=== PATIENT | female | born 2000 | race Two or more races ===

== ENCOUNTER 2025-06-23 08:55 | Outpatient (REF) | payer OTHER, SELFPAY ==
[2025-06-23 15:13] LABS: Chlamydia pneumoniae PCR Not Detected (Not Detect.); Coronavirus 229E PCR Not Detected (Not Detect.); Coronavirus HKU1 PCR Not Detected (Not Detect.); Coronavirus NL63 PCR Not Detected (Not Detect.); Coronavirus OC43 PCR Not Detected (Not Detect.); RSV PCR Not Detected (Not Detect.); Rhino/Enterovirus PCR Detected (Not Detect.)
[2025-06-23 15:26] LABS: Influenza A H1 PCR Not Detected (Not Detect.); Influenza A H1-2009 PCR Not Detected (Not Detect.); Influenza A H3 PCR Not Detected (Not Detect.); SARS-CoV-2 PCR Not Detected (Not Detect.)
--- OUTSIDE RECORDS SUMMARY | 2025-06-23 16:12 | XMS_ITS | Clinical Summary ---
Author Organization [facility] Address [address] [place] [address] Care Team Providers Care Suture Winder Hand Name Role Phone Hammad Vicente MD Primary Care Provider [phone] Allergies No known active allergies Medications sertraline (ZOLOFT) 25 mg tablet Take 1 tablet (25 mg total) by mouth 1 (one) time each day. 30 each 1 05/30/20 25 025 Active hydrocortisone 1 % topical cream Apply topically 1 (one) time each day if needed for rash. 30 g 1 05/30/20 25 026 Active norethindrone- ethinyl estradiol (JUNEL FE 09/23) 1 mg-20 mcg (21)/75 mg (7) per tablet Take 1 Tablet by mouth daily for 360 days. 05/10/20 24 025 Discontinu ed(Discont inued by another clinician) docusate sodium (COLACE) 100 mg capsule TAKE 1 CAPSULE BY MOUTH 2 TIMES DAILY NEEDED FOR CONSTIPATION FOR UP TO 30 DAYS. 01/22/20 24 025 Discontinu ed(Discont inued by another clinician) azithromycin (ZITHROMAX) 250 mg tablet TAKE 4 TABLETS BY MOUTH DAILY ALL AT ONE TIME WITH OR WITHOUT FOOD 11/07/19 24 025 Discontinu ed(Discont inued by another clinician) amoxicillin (AMOXIL) 875 mg tablet Take 1 tablet (875 mg total) by mouth 2 (two) times a day. for 7 days 01/02/20 24 025 Discontinu ed(Discont inued by another clinician) Active Problems Problem Noted Date Diagnosed Date contractions 02/09/2024 Overview (09/19/2024): Evaluated at 33w3d for ROM with negative work up (amnisure/wetprep/trich/gcct/urine) -She was found to have contraction, cervix :L/T/C x2 ---GBS resulted negative, please repeat at 38 weeks if patient is not delivered Maternal varicella, non-immune 02/06/2024 Anemia 01/22/2024 Overview (09/19/2024): Ferritin at 7. Iron ordered, will schedule with heme for infusion Has had iron infusinons this pregnacy x 4 Sickle cell trait ([facility] V24) 08/31/2023 Overview (09/19/2024): 08/31/23 pt reports she has sickle cell trait. Unknown status of FOB. Pt is having Horizon testing (can test FOB through [facility] if her test is positive) FOB [facility] Horizon negative Strep throat 10/12/2009 Encounters Date Type Department Care Team Description 05/30/2025 8:45 AM EDT [facility] [address] [place] [address] Hammad Vicente MD Severe episode of recurrent major depressive disorder, without psychotic features ([facility] V24, [facility] V28) (Primary Dx); Flexural eczema from Last 3 Months Immunizations Immunization Administration Dates Next Due DTaP (Infanrix) 6wks to less than 7yo ,02/06/2004,03/09/2003,11/21,2002 MAfN-HSG-MVP (Pentacel) 2mo to less than 5yo 11/06/2003,03/09/2003,2002 H1N1 All Forms 08/05/2024 HPV 9-valent (Gardisil) 9yo to less than 46yo 09/01/2016,07/23/2015 Hepatitis B Pediatric (Enger ix B; Recombivax HB) to less than 20 yo 03/09/2003,2002,2002 IPV Inactivated polio (Ipol) 6wks and older 10/19/2006,11/06/2003,2002,08/22 Influenza trivalent, 0.5mL, preservative free (Fluarix; FluLaval; Fluzone) ages 6mo and older (Afluria) 3 years and older 09/01/2016,07/23/2015,08/05/2011,08/03 Influenza, Unspecified 2023 Influenza, live, intranasal, trivalent (FluMist) 2yo to less than 50yo 07/17/2014 MMR, measles mumps and rubel la Live (Priorix; M-M-R II) 12mo and older 11/06/2003 MMRV, measles mumps rubella and varicella live (Proquad) 4yo to less than 7yo 10/19/2006 Meningococcal MCV4P 11/01/2019,07/17/2014 Butlr SARS-CoV-2 COVID-19, mRNA, LNP-S, preservative free 04/26/2021,04/03/2021 Pneumococcal Conjugate Vacci ne, 7 Valent 07/17/2003,03/09/2003,2002,08/22 Tdap Tetanus diptheria acell ular pertussis (Boostrix; Adacel) 7yo and older 01/03/2024,07/17/2014 Varicella live (Varivax) 12m o and older 07/17/2003 Surgical History Surgery Date Site/Laterality Comments OTHER SURGICAL HISTORY PROCEDURE: HISTORY OTHER; COMMENT: face abscess surgery, had tube placed to drain it x 1 week OTHER SURGICAL HISTORY PROCEDURE: EXTRACTION ERUPTED TOOTH/EXR; COMMENT: molar tooth Medical History Medical History Date Comments No pertinent past medical history DX:No pertinent past medical history Ovarian cyst 2017 DX:Ovarian cyst Sickle cell trait ([facility] V24) DX:Sickle cell trait ([facility]) Irregular menses 02/20/2023 DX:Irregular me nses Family History Medical History Relation Name Comments Allergies Father Asthma Father Other: sickle cell trait Father No Known Problems Half-Brother Other: sickle cell trait Half-Sister 1 No Known Problems Half-Sister 2 No Known Problems Maternal Grandfather Allergies Maternal Grandmother Allergies Mother Anemia Mother Allergies Other MATERNAL SIDE No Known Problems Paternal Grandfather No Known Problems Paternal Grandmother Other: sickle cell trait Sister Breast cancer Neg Hx Cervical cancer Neg Hx Colon cancer Neg Hx Ovarian cancer Neg Hx Pancreatic cancer Neg Hx Prostate cancer Neg Hx Uterine cancer Neg Hx Relation Name Status Comments Father Alive 03/15/83 Half-Brother Alive share mom Half-Sister 1 Alive dad side Half-Sister 2 Alive dad side Maternal Grandfather Alive Maternal Grandmother Alive Mother Alive 09/26/84 Other Paternal Grandfather Paternal Grandmother Alive Sister Alive 01/02/06 Geovanna Social History Tobacco Use Types Packs/Day Years Used Date Smoking Tobacco: Never Smokeless Tobacco: Never Tobacco Cessation:Counseling Given: Not Answered Alcohol Use Standard Drinks/Week Comments No 0 (1 standard drink = 0.6 oz pur e alcohol) Housing Instability Answer Date Recorde d Are you worried that in the next 2 months you may not have stable housing? No 10/22/2024 Food Access & Nutrition Answer Date Rec orded Do you have access to a vari ety of food including fruits and vegetables? Yes 10/22/2024 Health Literacy Answer Date Recorded How often do you need to hav e someone help you when you read instructions, pamphlets, or other written material from your doctor or pharmacy? Never 10/22/2024 Caregiver: How often do you need to have someone help you when you read instructions, pamphlets, or other written material from your doctor or pharmacy? Not on file 10/22/2024 Financial Risk Answer Date Recorded How hard is it for you to pa y for the very basics like food, housing, medical care, and air conditioning / heating? Not asked 10/22/2024 Transportation Answer Date Recorded Has the lack of transportati on kept you from meetings, work, or from getting things needed for daily living? No Has the lack of transportati on kept you from medical appointments or from getting medications? No 10/22/2024 Social Isolation Answer Date Recorded How often do you feel lonely or isolated from th ose around you? Never 10/22/2024 Food Risk Answer Date Recorded Within the past 12 months we worried whether our food would run out before we got money to buy more. Never true 10/22/2024 Within the past 12 months th e food we bought just didn't last and we didn't have money to get more. Never true 10/22/2024 Dependent Care Answer Date Recorded Do you need help finding or paying for care for your loved ones. For example, child adolescent care or elderly care for an older adult? No 10/22/2024 Education Answer Date Recorded Do you think completing more education or training, like finishing a GED, going to college, or learning a trade, would be helpful for you? N/A 10/22/2024 Employment and Income Answer Date Recor ded During the last four weeks, have you been actively looking for work? No 10/22/2024 Living Situation Answer Date Recorded What is your living situation? Unrecognized valu e 10/22/2024 Comments No Sex and Gender Information Value Date Recorded Sex Assigned at Not on file Legal Sex Female 2:27 AM EST Gender Identity Not on file Sexual Orientation Not on file Obstetrics History Para Term AB IAB SAB Ectopic Multiple Livin g Live Births 1 1 1 Date Outcome GA Total Labor Labor/2nd/3rd Weight Sex Type Anes PTL Stephy A1 A5 Name Clin 024 Term 41w 2d 3941 g (139 oz) F Vag-S pont Epidur al Maxwell CNM Delivery Location:[facility] Filed Vital Signs Vital Sign Reading Time Taken Comments Blood Pressure 111/78 05/30/2025 8:50 AM EDT Pulse 70 05/30/2025 8:50 AM EDT Temperature - - Respiratory Rate 16 10/23/2024 11:28 AM EST Oxygen Saturation - - Inhaled Oxygen Concentration - - Weight 51.9 kg (114 lb 8 oz) 05/30/2025 8:50 AM EDT Height 160 cm (5' 3 ) 05/30/2025 8:50 AM EDT Body Mass Index 20.28 05/30/2025 8:50 AM EDT Plan of Treatment Upcoming Encounters Date Type Department Care Team (Late st Contact Info) Description 07/15/2025 8:45 AM EST [facility] [address] [place] [phone] Hammad Vicente MD [address] [place] [address] 10/29/2025 11:30 AM EST Office Visit [facility] Medicine - [facility] [address] [facility] [place] [phone] Enrique Ridley PA [address] [facility] [place] [address] Health Maintenance Due Date Last Done Comments Pneumococcal Vaccine: Pediatrics (0 to 5 Years) and At-Risk Patients (6 to 49 Years) (1 of 2 - PPSV23, PCV20, or PCV21) 09/11/2003 07/17/2003, 03/09/2003, 2002, Additional history exists Meningococcal B Vaccine (1 of 2 - Standard) 2018 COVID-19 Vaccine (3 - season) 2025 04/26/2021, 04/03/2021 Influenza Vaccine (#1) 2025 , 2023, 06/07/2023, Additional history exists Social Influencers of Health Screening 10/22/2025 10/22/2024 Gonorrhea/Chlamydia Screening 10/28/2025 10/28/2024, 03/08/2024 Cervical Cancer Screening: Pap Smear 09/13/2026 09/13/2023, 09/13/2023, 09/13/2023 Cholesterol Screening (Lipid Panel) 08/31/2028 08/31/2023 DTaP,Tdap,and Td Vaccines (8 - Td or Tdap) 01/02/2034 01/03/2024, 07/17/2014, 10/19/2006, Additional history exists RSV Immunization Adult Patients (1 - 1-dose 75+ series) 2077 Hepatitis B Vaccines Completed 03/09/2003, 2002, 2002 HIB Vaccines Completed 11/06/2003, 12/2003, 03/09/2003, Additional history exists IPV Vaccines Completed 10/19/2006, 12/2003, 11/06/2003, Additional history exists MMR Vaccines Completed 10/19/2006, 11/06/2003 HPV Vaccines Completed 09/01/2016, 07/23/2015 Meningococcal ACWY Vaccine Completed 11/01/2019, HIV Screening Completed 08/31/2023 Hepatitis C Screening Completed 08/31/2023 Varicella Vaccines Completed 04/03/2024, 0 10/19/2006, 07/17/2003 Depression Screening Completed 05/30/2025 Hepatitis A Vaccines Aged Out No long er eligible based on patient's age to complete this topic RSV Immunization Patients Under 20 months Aged Out No longer eligible based on patient's age to complete this topic Procedures Procedure Name Priority Date/Time Associated Diagnosis Comments CHLAMYDIA TRACHOMATIS AND NEISSERIA GONORRHOEAE PCR Routine 10/28/2024 10:04 AM EST Venereal disease screening PAP SMEAR Routine 09/13/2023 HEPATITIS C SCREENING Routine 08/31/2023 HIV SCREENING Routine 08/31/2023 LIPID PANEL Routine 08/31/2023 from Last 3 Months or Most Recently Relevant to Health Maintenance Results * Chlamydia trachomatis and Neisseria gonorrhoeae molecular study (10/28/2024 10:04 AM EST) Neisseria gonorrhoeae PCR Negative Negative LAB MOLECULAR DIAGNOSTICS METHOD 10/29/2024 9:21 AM EST [facility] Chlamydia trachomatis PCR Negative Negative LAB MOLECULAR DIAGNOSTICS METHOD 10/29/2024 9:21 AM EST [facility] Swab Vaginal structure / Unknown Non-blood Collection / Unknown 10/28/2024 10:04 AM EST 10/28/2024 10:04 AM EST us Jamilah Mistry CNM LAB MICROBIOLOGY - GENERAL OR DERABLES Final Result [facility] [address] [place] [address], [place] [phone] * Pap smear (09/13/2023) 09/13/2023 Narrative HISTORICAL TESTING LAB RESULTING AGENCY - 09/21/2023 12:01 PM EST [id number] THINPREP PAP, IMAGED: NEGATIVE FOR SQUAMOUS INTRAEPITHELIAL LESION AND MALIGNANCY . TRICHOMONAS VAGINALIS IS PRESENT. ABUNDANT PARTIALLY OBSCURING ACUTE INFLAMMATORY CELLS ARE PRESENT. LEAH GARCIA(ASCP) (CASE ELECTRONICALLY SIGNED 09 21 2023) ADEQUACY: SATISFACTORY . SOURCE: THINPREP PAP HPV IF ASCUS, VAGINAL, IMAGED CLINICAL INFORMATION: HPV IF DIAGNOSIS OF ASCUS. , PAP HX NEGATIVE, LMP 06/18/23, [Z12.4] April Arreola CNM LAB CYTOLOGY ORDERABLES [place] Result HISTORICAL TESTING LAB RESULTING AGENCY * HIV Screening (08/31/2023) Pathologist [facility] HIV Screening abstracted Historical Provider HEALTH MAINTENANCE Final Result * Hepatitis C Screening (08/31/2023) Pathologist [facility] Hepatitis C Screening no interpretation , abstracted Historical Provider HEALTH MAINTENANCE Final Result * Lipid panel (08/31/2023) [facility] LDL/HDL Ratio 2 0 - 4 Triglycerides 55 0 - 150 mg/dL Cholesterol 109 0 - 200 mg/dL HDL 47 >=40 mg/dL LDL Cholesterol 51 0 - 100 mg/dL Blood Venous blood specimen / Unknown Historical Provider LAB BLOOD ORDERABLES [place] Result from Last 3 Months or Most Recently Relevant to Health Maintenance Insurance [facility] Care Teams Suture Winder Hand Relationship Specialty Start Date End Date Hammad Vicente MD [address] [place] [id number] PCP - General Internal Medicine 09/17/24
--- OUTSIDE RECORDS SUMMARY | 2025-06-23 16:12 | XMS_ITS | Data Portability ---
Author Organization [facility] [address] Address [address] [place] [address] Assessment No assessment recorded. Plan of Treatment Reminders Order Date Submit Date Provider Last Modified By Organization Details Last Modified Time Details Appointments None recorded. Lab None recorded. Referral None recorded. Procedures None recorded. Surgeries None recorded. Imaging None recorded. Medication Orders Tamiflu [address] [id number], [address] [place], [address], 11:14:35 ondansetron 4 mg disintegrat ing tablet [address] [id number], [address] [place], [address], 03:31:59 Patient TargetsNo targets recorded. Patient Instructions Encounter Date Encounter Id Patient Instructions Last Modified By Organization Details Last Modified Time 08/12/2022 [id number] influenza (flu): care instructions [email or web address] Not available 08/12/2022 11:15:21 rest, push fluids, continue tylenol and ibuprofen, dayquil, nyquil [email or web address] Not available 08/12/2022 11:15:06 Reason for Referral None Reported. Problems No Known Problems Medical Equipment None Reported. Allergies No known drug allergies Medications Name Sig Start Date Stop Date Status Note LastModified by Organization Details LastModified Time Tamiflu 75 mg capsule Take 1 capsule twice a day by oral route. 2021 active Not Available Not Available Not Avai lable ondansetron 4 mg disintegrati ng tablet Place 1 tablet 3 times a day by translingua l route. 2021 active Not Available Not Available Not Avai lable Vitals Date Recorded Body height Body mass index (BMI) [Percentile] Per age and sex Body mass index (BMI) Body weight Oxygen saturation Oxygen saturation in Arterial blood by Pulse oximetry Pain severity - 0-10 verbal numeric rating [Score] - Reported Heart rate Respiratory rate Body temperature Systolic And Diastolic Provider Name and Address Organization Details Last Updated DateTime 160.02 cm 45 % 21.3 kg/m2 25506.0 8 g 100 % 100 % 7 94 /min 18 /min 99.2 [degF] 116/84 mm[Hg] JABIER POWER PA - [facility] 11:00:52 Social History Question Answer Notes LastModified by [employer] Details LastModified Time Tobacco Smoking Status Never Smoker JABIER deshpande, PA - [facility] 08/12/2022 11:02:01 What Is The Highest Grade Or Level Of School You Have Completed Or The Highest Degree You Have Received? [id number] Information not available 08/12/2022 What Is Your Water Source? City Information not available 08/12/2022 What Is Your Heat Source? Electric Information not available 08/12/2022 Have You Had Direct Contact, Or Contact During Intimacy, With Monkeypox Rash, Scabs, Or Body Fluids From A Person With Monkeypox? No [email or web address] Information not available 08/12/2022 What Is Your Relationship Status? Unknown [email or web address] Information not available 08/12/2022 Have You Recently Traveled Abroad? No Information no t available 08/12/2022 Are You Currently In School? Yes Information not available 08/12/2022 Sex: Unknown Functional Status Question Answer Note LastModified by [employer] Details LastModified Time Do you use any illicit or recreational drugs? No [email or web address] Information not available 08/12/2022 Do you or have you ever used any other forms of tobacco or nicotine? No Information not available 08/12/2022 What is your level of alcohol consumption? None [email or web address] Information not available 08/12/2022 Are you currently employed? Yes [email or web address] Information not available 08/12/2022 Mental Status None recorded. Family History Relationship Description Onset Age of this Age Resolved Age Notes LastModified by Organization Details LastModified Time Father No current problems or disability [email or web address] Not available 08/12/2022 11:01:50 Mother No current problems or disability [email or web address] Not available 08/12/2022 11:01:50 Medical History No medical history recorded. Gynecological HistoryNo gynecological history recorded. Obstetrics History GPAL:G 0 P 0 0 0 0 Immunizations Vaccine Type Date Status Note Provider Nam e and Address Organization Details Recorded Time HPV9 6 completed JABIER BAILEY POWER null, PA - [facility] 08/12/2022 11:01:37 pneumococcal conjugate PCV 7 3 completed JABIER BAILEY POWER null, PA - [facility] 08/12/2022 11:01:37 Influenza, split virus, trivalent, preservative 0 completed JABIER BAILEY POWER null, PA - [facility] 08/12/2022 11:01:37 Hib (HbOC) 3 completed JABIER BAILEY POWER null, PA - [facility] 08/12/2022 11:01:37 COVID-19, mRNA, LNP-S, PF, 30 mcg/0.3 mL dose 1 completed JABIER BAILEY POWER null, PA - [facility] 08/12/2022 11:01:37 IPV 7 completed JABIER BAILEY POWER null, PA - [facility] 08/12/2022 11:01:37 varicella 3 completed JABIER BAILEY POWER null, PA - [facility] 08/12/2022 11:01:37 MMR 4 completed JABIER BAILEY POWER null, PA - [facility] 08/12/2022 11:01:37 meningococcal MCV4P 0 completed JABIER BAILEY POWER null, PA - [facility] 08/12/2022 11:01:37 DTaP 3 completed JABIER BAILEY POWER null, PA - [facility] 08/12/2022 11:01:37 IPV 2 completed JABIER BAILEY POWER null, PA - [facility] 08/12/2022 11:01:37 IPV 4 completed JABIER BAILEY POWER null, PA - [facility] 08/12/2022 11:01:37 DTaP 3 completed JABIER BAILEY POWER null, PA - [facility] 08/12/2022 11:01:37 Influenza, split virus, trivalent, preservative 1 completed JABIER BAILEY POWER null, PA - [facility] 08/12/2022 11:01:37 pneumococcal conjugate PCV 7 3 completed JABIER BAILEY POWER null, PA - [facility] 08/12/2022 11:01:37 pneumococcal conjugate PCV 7 3 completed JABIER BAILEY POWER null, PA - [facility] 08/12/2022 11:01:37 Hep B, adolescent or pediatric 2 completed JABIER BAILEY POWER null, PA - [facility] 08/12/2022 11:01:37 HPV9 5 completed JABIER BAILEY POWER null, PA - [facility] 08/12/2022 11:01:37 Influenza, split virus, trivalent, preservative 6 completed JABIER BAILEY POWER null, PA - [facility] 08/12/2022 11:01:37 Influenza, live, trivalent, intranasal, PF 4 completed JABIER BAILEY POWER null, PA - [facility] 08/12/2022 11:01:37 COVID-19, mRNA, LNP-S, PF, 30 mcg/0.3 mL dose 1 completed JABIER BAILEY POWER null, PA - [facility] 08/12/2022 11:01:37 MMRV 7 completed JABIER BAILEY POWER null, PA - [facility] 08/12/2022 11:01:37 Hib (HbOC) 4 completed JABIER BAILEY POWER null, PA - [facility] 08/12/2022 11:01:38 Tdap 4 completed JABIER BAILEY POWER null, PA - [facility] 08/12/2022 11:01:38 IPV 3 completed JABIER BAILEY POWER null, PA - [facility] 08/12/2022 11:01:38 DTaP 4 completed JABIER BAILEY POWER null, PA - [facility] 08/12/2022 11:01:38 Hep B, adolescent or pediatric 2 completed JABIER BAILEY POWER null, PA - [facility] 08/12/2022 11:01:38 meningococcal MCV4P 4 completed JABIER BAILEY POWER null, PA - [facility] 08/12/2022 11:01:38 DTaP 7 completed JABIER BAILEY POWER null, PA - [facility] 08/12/2022 11:01:38 Influenza, split virus, trivalent, preservative 5 completed JABIER BAILEY POWER null, PA - [facility] 08/12/2022 11:01:38 Hib (HbOC) 2 completed JABIER BAILEY POWER null, PA - [facility] 08/12/2022 11:01:38 DTaP 2 completed JABIER BAILEY POWER null, PA - [facility] 08/12/2022 11:01:38 pneumococcal conjugate PCV 7 2 completed JABIERVARSHA BAILEY POWER null, PA - [facility] 08/12/2022 11:01:38 Hep B, adolescent or pediatric 3 completed JABIER BAILEY POWER null, PA - [facility] 08/12/2022 11:01:38 Influenza, split virus, quadrivalent, PF 0 completed JABIER BAILEY POWER null, PA - [facility] 08/12/2022 11:01:38 Past Encounters Encounter ID Performer Location Encounter Start Date Encounter Closed Date Diagnosis/Indication Diagnosis SNOMED-CT Code Diagnosis ICD10 Code Diagnosis IMO Codes Diagnosis Note [id number] [address] [place] [address] 01/19/2021 19:05:45 01/19/2021 20:36:40 [id number] [address] [place] [address] 06/03/2020 15:36:55 06/03/2020 18:18:58 [id number] [address] [place] [address] 03/01/2019 19:38:42 03/01/2019 20:13:00 [id number] ARJUN MERINO [address] [place] [address] 08/12/2022 10:45:33 08/12/2022 11:35:31 Influenza caused by Influenza A virus [id number] J09.X2 Health Concerns Section Related Observation LastModified by Organization Detai ls LastModified Time None Recorded Concern Status LastModified by Organization Details LastModified Time None Recorded Advance Directives Directive None Recorded Payers Insurance Date Sequence Insurance Name Policy Number Policy Temple Covered Member ID Temple Member ID Guarantor Name 08/12/2022 1 [facility] - [facility] (MEDICAID REPLACEMENT - O) SOHA Maldonado [id number] Betty Maldonado Notes Date Note Type Note Provider Name and Address Organization Details Recorded Time 08/12/2022 text/html was dx with flu A. notes n/v, unable to keep down fluids/meds. notes fever, bodyaches, headache, head and chest congestion ARJUN MERINO [address] [place], [address], [place] - [facility] 08/12/2022 11:16:46 OBGyn Episode No OBEpisode recorded.
--- OUTSIDE RECORDS SUMMARY | 2025-06-23 16:12 | XMS_ITS | Clinical Summary ---
Author Organization [facility] Address [address] [place] [address] Care Team Providers Care Senior Mobile Application Developer Name Role Phone Maxwell, April Partida CNM Primary Care Provider [phone] Allergies No known active allergies Medications Medication Sig Dispensed Refills Start Date End Date Status ferrous sulfate 325 (65 FE) MG tablet Take 1 tablet (325 mg total) by mouth every morning with breakfast. 0 Active Active Problems Problem Noted Date Diagnosed Date Anemia during in third trimester 01/30 Anemia 01/31/2024 Social History Tobacco Use Types Packs/Day Years Used Date Smoking Tobacco: Never Smokeless Tobacco: Never Tobacco Cessation:Counseling Given: Not Answered Alcohol Use Standard Drinks/Week Comments Not Currently 0 (1 standard drink = 0.6 oz pur e alcohol) Pt is Sex and Gender Information Value Date Recorded Sex Assigned at Female 02/15/2024 12:19 PM EDT Gender Identity Not on file Sexual Orientation Not on file Job Start Date Occupation Industry Not on file Not on file Not on file Last Filed Vital Signs Vital Sign Reading Time Taken Comments Blood Pressure 109/71 02/22/2024 2:13 PM EDT Pulse 97 02/22/2024 2:13 PM EDT Temperature 36.6 C (97.8 F) 02/22/2024 2:13 PM EDT Respiratory Rate 18 02/08/2024 1:12 PM EDT Oxygen Saturation 99% 02/22/2024 2:13 PM EDT Inhaled Oxygen Concentration - - Weight 58.7 kg (129 lb 6.4 oz) 01/31/2024 8:39 A M EDT Height 160 cm (5' 3 ) 01/31/2024 8:39 AM EDT Body Mass Index 22.92 01/31/2024 8:39 AM EDT Plan of Treatment Health Maintenance Due Date Last Done Comments Hepatitis C Screening 2002 Depression Screening 2014 Gonorrhea and Chlamydia Screening 2015 Preventative Health Evaluation 2020 Cervical Cancer Screening (Pap Smear) 2023 COVID-19 Vaccine ( season) 2025 04/26/2021, 04/03/2021 Influenza Vaccine (#1) 2025 , 08/15/2020, 08/15/2020, Additional history exists DTap / Tdap / Td (8 - Td or Tdap) 01/02/2034 01/03/2024, 07/17/2014, 10/19/2006, Additional history exists Hepatitis B Vaccines Completed 03/09/2003, 2002, 2002 Pneumococcal Vaccine Completed 07/17/2003, 03/09/2003, 2002, Additional history exists RSV Ped < 20 months Aged Out No longe r eligible based on patient's age to complete this topic Care Teams Senior Mobile Application Developer Relationship Specialty Start Date End Date April Arreola CNM PCP - General Obstetrics and Gynecology 01/30/24
== END 2025-06-23 08:56 | disposition home or self-care (01) ==
LOC: HO.LNP 08:55
PROVIDERS: Visit Provider Physician Assistant Medical
DX: J39.2 Other diseases of pharynx (principal); R07.1 Chest pain on breathing; J04.0 Acute laryngitis; Z13.89 Encounter for screening for other disorder
CPT/HCPCS: 87633; 87880

== ENCOUNTER 2025-06-23 08:55 | Outpatient (AMB) | payer OTHER, SELFPAY ==
--- NOTE | 2025-06-23 09:02 | MHC.OFFWIV ---
Intake Vital Signs 06/23/25 09:12 Height 5 ft 3 in Weight 115 lb 6 oz BMI 20.4 BP 100/64 Blood Pressure Location Lt brachial Position Sitting Temp 98.5 F Temp Source Oral Intake Visit Reasons: [employer] Laryngitis Intake Note: Patient presents for loss of voice, burning in throat x3 days Allergies No Known Allergies Allergy (Verified 06/23/25 09:14) HPI HPI Comments History of Present Illness Details History - The patient is a 25-year-old female presenting with loss of voice and burning in the throat. - She lost her voice on Monday without any preceding events such as screaming, and experienced complete loss of voice on Monday, which began to return by Monday afternoon. - The patient describes a burning sensation in her throat when speaking, but she can swallow and eat without difficulty, and denies any cough, fever, chills, chest pain, headache, or ear pain. - She does not use vaping products and has been consuming water and tea, including honey, to alleviate symptoms, reporting clear urine. - A viral infection is suspected, and a swab test is planned to confirm the diagnosis. - She is not a smoker and she works in a medical office. Physical Exam General: Cooperative, healthy appearing, comfortable and no acute distress Orientation/consciousness: Patient oriented x3 Limitations: No limitations Head: Normal to inspection Ears: Hearing grossly normal bilaterally, external ears normal and TM's normal bilaterally Nose: Normal external nose present, normal nares present, and no nasal discharge present. Face and sinus: Sinuses nontender to palpation. Mouth: Normal oral and palatal mucosa present and moist mucous membranes noted. Throat: Tonsils normal. Uvula is midline. Posterior oropharynx with erythema and no exudates. Eyes: Appearance normal, both eyes and all related structures Neck: Normal visual inspection, full ROM. +lymphadenopathy noted. Respiratory: Clear to auscultation bilaterally. Normal respiratory effort, able to speak in complete sentences. No respiratory distress, not tachypneic, no tripod positioning and no use of accessory muscles. Cardiovascular: Regular rate and rhythm. Normal S1 and S2. No m/r/g noted. Skin: No rashes or lesions noted Patient was informed and verbally consented to the use of an ambient scribe for clinic note documentation during this visit Review of Systems Const All systems reviewed & are unremarkable except as noted in HPI and below Physical Exam Vital Signs: Last Vital Signs Temp 98.5 F 06/23/25 09:12 BP 100/64 06/23/25 09:12 BMI result Body Mass Index 20.4 Results AMB Rapid Strep AMB Rapid Strep Negative Last Edit by Nicole Varner CMA on 06/23/25 09:52 Assessment & Plan Assessment & Plan (1) Laryngitis: Code(s): J04.0 - Acute laryngitis Plan Most likely viral illness vs strep vs laryngitis rapid strep is negative plan - A viral swab test will be conducted to rule out viral etiology. - The patient is advised to maintain hydration with fluids such as water and tea. - Honey is recommended to soothe the throat. - If symptoms persist, medication may be considered. - The patient is advised to continue consuming fluids to aid recovery - will call with the results - follow up if her symproms worsens Orders: Orders Resp Pathogen Panel - [facility] Today J06.9 - Acute upper respiratory infection, unspecified AMB Rapid Strep Screen Today Z13.9 - Encounter for screening, unspecified Coding Level of Care Code Est Pt Level 3 (09990) Diagnoses Laryngitis J04.0
[2025-06-23 09:12] VITALS: BP 100/64; TEMP 36.9; BMI 20.4
== END 2025-06-23 10:13 | disposition home or self-care (01) ==
PROVIDERS: Visit Provider Physician Assistant Medical
DX: Z13.9 Encounter for screening, unspecified (principal); J04.0 Acute laryngitis

== ENCOUNTER 2025-06-26 09:57 | Outpatient (REF) | payer OTHER, SELFPAY ==
--- NOTE | ~2025-06-26 | XR_ITS ---
EXAMINATION: XR CHEST CLINICAL INFORMATION: R05.9 - Cough, unspecified COMPARISON: None available. TECHNIQUE: PA and lateral views. FINDINGS: No consolidation, pleural effusion or pneumothorax. Cardiomediastinal silhouette size is normal. S-shaped curvature of the thoracolumbar spine. XR/XR chest 2V IMPRESSION: No acute airspace disease. Mild scoliosis, thoracolumbar spine. Electronically signed by: Troy Strickland MD 06/26/2025 10:17 AM EDT
--- OUTSIDE RECORDS SUMMARY | 2025-06-26 11:35 | XMS_ITS | Clinical Summary ---
Author Organization [facility] Address [address] [place] [address] Care Team Providers Care Contract Negotiation Specialist Name Role Phone Maxwell, April Partida CNM Primary Care Provider +1- [phone] Allergies No known active allergies Medications Medication [...] age to complete this topic Care Teams Contract Negotiation Specialist Relationship Specialty Start Date End Date April Arreola CNM PCP - General Obstetrics and Gynecology 01/30/24
--- OUTSIDE RECORDS SUMMARY | 2025-06-26 11:36 | XMS_ITS | Clinical Summary ---
Author Organization [facility] Address [address] [place] [address] Care Team Providers Care Bridge Carpenter Name Role Phone Hammad Vicente MD Primary Care Provider [phone] Allergies No known active allergies Medications sertraline [...] this pregnacy x 4 Sickle cell trait ([facility] V24) 08/31/2023 Overview (09/19/2024): 08/31/23 pt reports she has sickle cell trait. Unknown status of FOB. Pt is having Horizon testing (can test FOB through [facility] if her test is positive) FOB [facility] Horizon negative Strep throat 10/12/2009 Encounters Date Type Department Care Team Description 05/30/2025 8:45 AM EDT [facility] [address] [place] [address] Hammad Vicente MD Severe episode of recurrent major depressive disorder, without psychotic features ([facility] V24, [facility] V28) (Primary Dx); Flexural eczema from Last 3 Months Immunizations Immunization Administration Dates Next Due DTaP (Infanrix) 6wks to less than 7yo ,02/06/2004,03/09/2003,11/21,2002 [id number] (Pentacel) 2mo to less than 5yo 11/06/2003,03/09/2003,2002 [...] less than 7yo 10/19/2006 Meningococcal MCV4P 11/01/2019,07/17/2014 Pagido SARS-CoV-2 COVID-19, mRNA, LNP-S, preservative free 04/26/2021,04/03/2021 [...] cyst 2017 DX:Ovarian cyst Sickle cell trait ([facility] V24) DX:Sickle cell trait ([facility]) Irregular menses 02/20/2023 DX:Irregular me nses Family [...] for your loved ones. For example, child development instructor or elderly care for an older adult? [...] Vag-S pont Epidur al Maxwell CNM Delivery Location:[facility] Filed Vital Signs Vital Sign Reading [...] AM EST [facility] [address] [place] [address] Hammad Vicente MD [address] [place] [address] 10/29/2025 11:30 AM EST Office Visit Internal Medicine - [facility] [address] [facility] [place] [phone] Enrique Ridley PA [address] [facility] [place] [address] Health Maintenance Due Date Last Done Comments [...] MOLECULAR DIAGNOSTICS METHOD 10/29/2024 9:21 AM EST [facility] Chlamydia trachomatis PCR Negative Negative LAB MOLECULAR DIAGNOSTICS METHOD 10/29/2024 9:21 AM EST [facility] Swab Vaginal structure / Unknown Non-blood Collection / Unknown 10/28/2024 10:04 AM EST 10/28/2024 10:04 AM EST us Jamilah Mistry CNM LAB MICROBIOLOGY - GENERAL OR DERABLES Final Result [facility] [address] [place] [address], [place] [phone] * Pap smear (09/13/2023) 09/13/2023 Narrative HISTORICAL TESTING LAB RESULTING AGENCY - 09/21/2023 12:01 PM EST [id number] THINPREP PAP, IMAGED: NEGATIVE FOR SQUAMOUS INTRAEPITHELIAL [...] RESULTING AGENCY * HIV Screening (08/31/2023) Pathologist [facility] HIV Screening abstracted Historical Provider HEALTH MAINTENANCE Final Result * Hepatitis C Screening (08/31/2023) Pathologist [facility] Hepatitis C Screening no interpretation , abstracted Historical Provider HEALTH MAINTENANCE Final Result * Lipid panel (08/31/2023) [facility] LDL/HDL Ratio 2 0 - 4 Triglycerides 55 0 - 150 mg/dL Cholesterol 109 0 - 200 mg/dL HDL 47 >=40 mg/dL LDL Cholesterol 51 0 - 100 mg/dL Blood Venous blood specimen / Unknown Historical Provider LAB BLOOD ORDERABLES [place] Result from Last 3 Months or Most Recently Relevant to Health Maintenance Insurance [employer] [facility] Care Teams Bridge Carpenter Relationship Specialty Start Date End Date Hammad Vicente MD [address] [place] [id number] PCP - General Internal Medicine 09/17/24
== END 2025-06-26 09:58 | disposition home or self-care (01) ==
LOC: HO.HMGCX 09:57
PROVIDERS: Visit Provider Physician Assistant Medical
DX: R05.9 Cough, unspecified (principal)
CPT/HCPCS: 71046

== ENCOUNTER → 2025-06-26 10:01 | Outpatient (BNV) | payer OTHER, SELFPAY | PROVIDERS: Visit Provider Radiology Diagnostic Radiology | DX: R05.9 Cough, unspecified (principal); M41.35 Thoracogenic scoliosis, thoracolumbar region | CPT/HCPCS: 71046 ==